=== PATIENT | male | born 1985 | race Two or more races ===

== ENCOUNTER 2022-10-27 12:29 | Emergency (ER) | payer SELFPAY ==
[~2022-10-27] VITALS: Ht 177.8 cm; Wt 74.8 kg
[~2022-10-27 12:29] MED LIST: Bactrim Ds Tab1 EACH PO; CEPH500 PO
[2022-10-27 13:21] LABS: BASOPHILS ABSOLUTE AUTO 0.05 K/mm3 (0.00-0.23); BASOPHILS PERCENT AUTO 0 % (0-2); EOSINOPHILS ABSOLUTE AUTO 0.11 K/mm3 (0.00-0.68); EOSINOPHILS PERCENT AUTO 1 % (0-6); IMMATURE GRAN ABSOLUTE AUTO 0.03 K/mm3 (0.00-0.10); IMMATURE GRAN PERCENT AUTO 0 % (0-1); LYMPHOCYTES ABSOLUTE AUTO 1.81 K/mm3 (0.84-5.20); LYMPHOCYTES PERCENT AUTO 15 % (21-46); MONOCYTES ABSOLUTE AUTO 0.91 K/mm3 (0.16-1.47); MONOCYTES PERCENT AUTO 7 % (4-13); Mean Corpuscular HGB 30.5 pg (26.0-34.0); Mean Corpuscular HGB Conc 34.1 g/dL (31.5-36.5); Mean Corpuscular Volume 89 fL (80-100); Mean Platelet Volume 10.8 fL (9.1-12.4); NEUTROPHILS ABSOLUTE AUTO 9.42 K/mm3 (1.96-9.15); NEUTROPHILS PERCENT AUTO 76 % (41-73); Platelet Count 271 K/mm3 (150-400); RDW Coefficient Variation 11.9 % (11.7-14.2); RDW Standard Deviation 38.6 fL (35.1-46.3); Red Blood Cell Count 4.59 M/mm3 (4.30-5.90); White Blood Cell Count 12.33 K/mm3 (4.00-11.30)
[2022-10-27 13:47] LABS: Albumin, Blood 3.2 g/dL (3.4-5.0); Albumin/Globulin Ratio 0.8 (0.8-1.8); Bilirubin, Total 0.3 mg/dL (0.1-1.0); Bun/Creatinine Ratio 16.5 (12.0-20.0); C-REACTIVE PROTEIN, EXT RANGE 6.27 mg/dL (0.000-0.300); Calcium, Blood 9.1 mg/dL (8.5-10.1); Creatinine, Blood 0.91 mg/dL (0.60-1.20); Globulin, Blood 3.9 g/dL (2.2-4.0); Potassium, Blood 3.9 mmol/L (3.5-5.5); Total Protein, Blood 7.1 g/dL (6.4-8.2)
[2022-10-27] MEDS ORDERED: Bactrim Ds Tab1 EACH PO (14:43)
[2022-10-27] MEDS ORDERED: IBUP800 PO (14:43)
== END 2022-10-27 14:56 | disposition home or self-care (01) ==
LOC: ER 12:29
PROVIDERS: Physician Assistant
DX: M71.161 Other infective bursitis, right knee (principal); Z88.0 Allergy status to penicillin; Z79.899 Other long term (current) drug therapy; F17.200 Nicotine dependence, unspecified, uncomplicated
CPT/HCPCS: 20610; 73562-RT; 80053; 85025; 86140; 99283-25; A9270

== ENCOUNTER 2023-02-13 13:42 | Inpatient (IN) | payer OTHER ==
[~2023-02-13] VITALS: Ht 177.8 cm; Wt 72.8 kg
[~2023-02-13 13:42] MED LIST changes: +IBUP800 PO
[2023-02-13 14:19] LABS: BASOPHILS ABSOLUTE AUTO 0.08 K/mm3 (0.00-0.23); BASOPHILS PERCENT AUTO 0 % (0-2); EOSINOPHILS ABSOLUTE AUTO 0.06 K/mm3 (0.00-0.68); EOSINOPHILS PERCENT AUTO 0 % (0-6); Hematocrit 38.6 % (37.0-53.0); Hemoglobin 13.1 g/dL (13.5-17.5); IMMATURE GRAN ABSOLUTE AUTO 0.16 K/mm3 (0.00-0.10); IMMATURE GRAN PERCENT AUTO 1 % (0-1); LYMPHOCYTES ABSOLUTE AUTO 2.34 K/mm3 (0.84-5.20); LYMPHOCYTES PERCENT AUTO 10 % (21-46); MONOCYTES ABSOLUTE AUTO 2.01 K/mm3 (0.16-1.47); MONOCYTES PERCENT AUTO 8 % (4-13); Mean Corpuscular HGB 29.9 pg (26.0-34.0); Mean Corpuscular HGB Conc 33.9 g/dL (31.5-36.5); Mean Corpuscular Volume 88 fL (80-100); Mean Platelet Volume 9.9 fL (9.1-12.4); NEUTROPHILS ABSOLUTE AUTO 19.71 K/mm3 (1.96-9.15); NEUTROPHILS PERCENT AUTO 81 % (41-73); Platelet Count 541 K/mm3 (150-400); RDW Coefficient Variation 11.7 % (11.7-14.2); RDW Standard Deviation 38.1 fL (35.1-46.3); Red Blood Cell Count 4.38 M/mm3 (4.30-5.90); White Blood Cell Count 24.36 K/mm3 (4.00-11.30)
[2023-02-13 14:40] LABS: Source, Urine Clean Catch
[2023-02-13 14:41] LABS: Albumin, Blood 2.4 g/dL (3.4-5.0); Albumin/Globulin Ratio 0.4 (0.8-1.8); Bilirubin, Total 0.5 mg/dL (0.1-1.0); Bun/Creatinine Ratio 13.8 (12.0-20.0); Calcium, Blood 8.6 mg/dL (8.5-10.1); Creatinine, Blood 0.94 mg/dL (0.60-1.20); Globulin, Blood 5.7 g/dL (2.2-4.0); Potassium, Blood 4.1 mmol/L (3.5-5.5); Total Protein, Blood 8.1 g/dL (6.4-8.2)
[2023-02-13 14:44] LABS: Appearance, Urine Hazy (Clear); Bilirubin, Urine Neg (Neg); Blood, Urine Neg (Neg); Color, Urine Yellow (P-Yellow); Glucose Qualitative, Urine Neg (Neg); Ketones, Urine Neg (Neg); Leukocyte Esterase, Urine 1+ (Neg); Nitrite, Urine Neg (Neg); Protein, Urine 2+ (Neg); Specific Gravity, Urine 1.015 (1.003-1.022); Urobilinogen, Urine 1+ (Normal)
[2023-02-13 15:06] LABS: Red Blood Cells, Urine 0-2 /hpf (0-2); Squamous Epithelial Cells Few /hpf (Few)
[2023-02-13 15:07] LABS: Bacteria Few /hpf; Hyaline Casts 0-2 /lpf (0-2); Mucus Mod (0-Heavy)
[2023-02-13] MEDS ORDERED: IBUP600 PO (15:22)
[2023-02-13] MEDS ORDERED: Percocet 5-3251 EACH PO (15:22)
[2023-02-13 18:11] LABS: U Amphetamine Screen DETECTED; U Barbituate Screen Not Detected; U Benzodiazapine Screen Not Detected; U Buprenorphine Screen Not Detected; U Cannabinoids Screen DETECTED; U Cocaine Screen Not Detected; U Methadone Screen Not Detected; U Methamphetamine Screen DETECTED; U Opiates Screen Not Detected; U Oxycodone Screen Not Detected; U Phencyclidine Screen Not Detected
[2023-02-13 21:11] VITALS: BP 122/77
--- NOTE | 2023-02-13 23:54 | NUR ---
SPOKE WITH HOSPITALIST AND PHARMACY REGARDING CEFEPIME DOSING TIMES, CEFEPIME ORIGINALLY ADMINISTERED AT 2230, NEXT DOSE SCHEDULED AT 0000. DOSING SCHEDULE Q8 AFTER INITIAL DOSE.
--- NOTE | 2023-02-13 23:57 | NUR ---
PHARMACY INFORMED TO SKIP 0000 DOSE OF CEFEPIME AND ADMINISTER 0800. WILL INFORM DAY SHIFT.
[2023-02-14 03:25] VITALS: BP 124/67
--- NOTE | 2023-02-14 05:35 | NUR ---
SHIFT SUMMARY PT A&OX4 AND ANSWERS QUESTIONS APPROPRIATELY. PT ARRIVED ON UNIT AT 2100 VIA W/C AND TRANSFERED INDEPENDENTLY TO THE BED. NO COMPLAINTS OF PAIN WHEN ASSESSED. PT ORIENTED TO ROOM AND CALL LIGHT. SMOKING/FIRE POLICY TAUGHT TO PT, PT VERBALIZED UNDERSTANDING. PT RECEIVED IV ANTIBIOTICS THROUGHOUT THE NIGHT. PT RECEIVED A SNACK AT AROUND 2130. PT SLEPT THROUGH MOST OF SHIFT. NO ACUTE EVENTS OCCURED DURING SHIFT. PT TO HAVE ABCESS DRAINED ON 02/14/23. VSS. PT LEFT IN A POSITION OF SAFETY WITH APPROPRIATE FALL PRECAUTIONS IN PLACE AND CALL LIGHT IN REACH.
[2023-02-14 06:17] LABS: Hematocrit 35.5 % (37.0-53.0); Hemoglobin 11.9 g/dL (13.5-17.5); Mean Corpuscular HGB 29.5 pg (26.0-34.0); Mean Corpuscular HGB Conc 33.5 g/dL (31.5-36.5); Mean Corpuscular Volume 88 fL (80-100); Mean Platelet Volume 10.4 fL (9.1-12.4); Platelet Count 444 K/mm3 (150-400); RDW Coefficient Variation 11.9 % (11.7-14.2); RDW Standard Deviation 38.5 fL (35.1-46.3); Red Blood Cell Count 4.03 M/mm3 (4.30-5.90); White Blood Cell Count 19.87 K/mm3 (4.00-11.30)
[2023-02-14 06:32] LABS: International Normalized Ratio 1.09; Prothrombin Time Results 11.4 Sec (9.7-11.5)
[2023-02-14 06:45] LABS: Bun/Creatinine Ratio 15.8 (12.0-20.0); Calcium, Blood 8.4 mg/dL (8.5-10.1); Creatinine, Blood 0.82 mg/dL (0.60-1.20); Magnesium, Blood 2.1 mg/dL (1.6-2.4); Potassium, Blood 4.2 mmol/L (3.5-5.5)
[2023-02-14 07:29] VITALS: BP 116/79
[2023-02-14 15:01] VITALS: BP 123/70
--- NOTE | 2023-02-14 15:42 | NUR ---
TO CT FOR ABCESS DRAIN.
[2023-02-14 16:45] VITALS: BP 118/71
--- NOTE | 2023-02-14 17:55 | NUR ---
LATE ENTRY 1630: PT RETURNED FROM CT WITH L NEPH TUBE FOR ABCESS DRAINAGE. VSS. PT STATES HE'S HUNGRY. PROVIDED SNACK & DRINK. DINNER WILL BE GIVEN TO PT. PT DENIES PAIN AT TUBE SITE.
--- NOTE | 2023-02-14 17:58 | NUR ---
SHIFT SUMMARY A&O X 4, VSS. LOW GRADE TEMP 100.00. WBC'S 19.87. IS PLEASANT & COOPERATIVE WITH ALL CARE, IS INDEPENDENT IN THE ROOM FOR RESTROOM USE. PT DENIES PAIN OR DISCOMFORT. L NEPH TUBE INTACT, SITE C/D/I. IS USING URINAL INDEPENDENTLY. CALL LIGHT WITHIN REACH, BED IN LOW POSITION. MAKES NEEDS KNOWN.
[2023-02-14 19:06] LABS: Vancomycin, Trough 8.7 ug/mL (5.0-10.0)
[2023-02-14 20:09] VITALS: BP 120/71
--- NOTE | 2023-02-15 04:51 | NUR ---
END OF SHIFT SUMMARY PT CALM, QUIET, VERY SOFT SPOKEN, AND COOPERATIVE WITH CARE PROVIDED. PT A&O x4, VSS, AFEBRILE, PT ON RA. PT SLEPT WELL THROUGHOUT THE NIGHT. PT RECEIVING IV ABX. CONTINUOUS FLUIDS RUNNING, NS AT 125 mL/HR. PT C/O PAIN TO L SIDE/ABD PAIN WHERE L NEPH TUBE WAS PLACED. PAIN MANAGED WITH PRN IV TORADOL, WHICH WAS EFFECTIVE. PT UP AD JOSEPH IN ROOM, INDEPENDENT WITH ADL's. PT ABLE TO MAKE NEEDS KNOWN, CALL LIGHT WITHIN REACH, WCTM.
[2023-02-15 05:22] VITALS: BP 130/82
[2023-02-15 07:24] VITALS: BP 126/80
--- NOTE | 2023-02-15 10:31 | NUR ---
CALLED CALLED TO NOTIFY OF PT'S BLOOD CULTURE RESULTS. RESULTS OF BLOOD CULTURE INDICATE GRAM + COCCI IN CLUSTERS.
[2023-02-15 16:08] VITALS: BP 104/66
--- NOTE | 2023-02-15 17:50 | NUR ---
SHIFT SUMMARY PT DENIED PAIN T/O SHIFT AND CONT TO HAVE PURULENT DRAINAGE FROM DRAIN. NO OTHER ACUTE CHANGES THIS SHIFT. CALL LIGHT WITHIN REACH AND PT ABLE TO MAKE NEEDS KNOWN.
[2023-02-15 19:11] VITALS: BP 130/79
[2023-02-15 19:51] LABS: Vancomycin, Trough 13.2 ug/mL (5.0-10.0)
--- NOTE | 2023-02-16 03:32 | NUR ---
END OF SHIFT SUMMARY PT A&O x4, CALM AND COOPERATIVE WITH CARE PROVIDED. VSS, AFEBRILE, PT ON RA. PT'S NEPH BAG LEAKED THE TWIST VALVE DRAINAGE PORT CAME LOOSE. DRAINAGE FROM BAG PURULENT IN COLOR. PROVIDED PT WITH A FRESH GOWN AND FRESH SHEETS. PT DENIED PAIN/DISCOMFORT OVERNIGHT. PT RECEIVED MULTIPLE IV ABX. PT UP AD JOSEPH IN ROOM, USES THE URINAL AT BEDSIDE. PT ABLE TO MAKE NEEDS KNOWN, PLEASANT AND COMPLIANT WITH CARE. CALL LIGHT WITHIN REACH, WCTM.
[2023-02-16 04:14] VITALS: BP 127/88
[2023-02-16 05:55] LABS: Hematocrit 39.3 % (37.0-53.0); Hemoglobin 13.2 g/dL (13.5-17.5); Mean Corpuscular HGB 29.9 pg (26.0-34.0); Mean Corpuscular HGB Conc 33.6 g/dL (31.5-36.5); Mean Corpuscular Volume 89 fL (80-100); Mean Platelet Volume 10.3 fL (9.1-12.4); Platelet Count 494 K/mm3 (150-400); RDW Coefficient Variation 11.9 % (11.7-14.2); RDW Standard Deviation 38.4 fL (35.1-46.3); Red Blood Cell Count 4.42 M/mm3 (4.30-5.90); White Blood Cell Count 10.67 K/mm3 (4.00-11.30)
[2023-02-16 06:10] LABS: Calcium, Blood 8.6 mg/dL (8.5-10.1); Creatinine, Blood 0.61 mg/dL (0.60-1.20); Potassium, Blood 4.4 mmol/L (3.5-5.5)
[2023-02-16 07:37] VITALS: BP 122/82
--- NOTE | 2023-02-16 17:06 | NUR ---
SHIFT SUMMARY NO ACUTE CHANGES THIS SHIFT. CALL LIGHT WITHIN REACH AND PT ABLE TO MAKE NEEDS KNOWN.
[2023-02-16 19:40] VITALS: BP 125/83
--- NOTE | 2023-02-17 02:14 | NUR ---
[place] BESIDE SWALLOW PATIENT PASSED THE [place] BEDSIDE SWALLOW. PATIENTS STATES NAME, YEAR AND PLACE W/O DIFFICULTY. PATIENTS FACE SYMMETRICAL WITH SMILE, FULL RANGE IN TOUNGE, EASILY ABLE TO PUFF CHEEKS WITH LIPS CLOSED. PATIENT ABLE TO DRINK 3OZ OF WATER SLOWLY AND CONTINUOUSLY WITHOUT ISSUES. NO COUGHING FOLLOWING BEDSIDE SWALLOW.
[2023-02-17 03:17] VITALS: BP 126/80
[2023-02-17 05:45] LABS: Hematocrit 40.5 % (37.0-53.0); Hemoglobin 13.1 g/dL (13.5-17.5); Mean Corpuscular HGB 29.1 pg (26.0-34.0); Mean Corpuscular HGB Conc 32.3 g/dL (31.5-36.5); Mean Corpuscular Volume 90 fL (80-100); Mean Platelet Volume 9.8 fL (9.1-12.4); Platelet Count 508 K/mm3 (150-400); RDW Coefficient Variation 11.9 % (11.7-14.2); RDW Standard Deviation 38.9 fL (35.1-46.3); White Blood Cell Count 11.69 K/mm3 (4.00-11.30)
[2023-02-17 06:18] LABS: Calcium, Blood 8.8 mg/dL (8.5-10.1); Creatinine, Blood 0.62 mg/dL (0.60-1.20); Potassium, Blood 4.1 mmol/L (3.5-5.5)
--- NOTE | 2023-02-17 06:30 | NUR ---
SHIFT SUMMARY. NO ACUTE CHANGES. PATIENT INDEPENDENT IN ROOM. PATIENT AOX4. CALLS APPROPRIATELY, ABLE TO MAKE NEEDS KNOWN. PATIENT HAS SLEPT WELL T/O NIGHT, REQUESTED SNACKS-SNACKS PROVIDED. PATIENT HAS NS INFUSING-SEE EMAR. BED IS LOCKED IN THE LOWEST POSITION W/CALL LIGHT IN REACH. NO S/S OF DISTRESS NOTED AT THIS TIME.
[2023-02-17 07:16] VITALS: BP 123/78
--- NOTE | 2023-02-17 10:46 | NUR ---
UPON ASSESSMENT PATIENT STATES THAT HE HAS [place]IVING [place] THE [place] FOR 2 YEARS NOW. WHEN ASKED PATIENT REASONING FOR HOMELESS HE STATES DUE TO NOT HAVING A JOB. HE STATES THAT HE USES [employer] OCCASIONALLY AND LAST USED 2 DAYS AGO. HE IS DIAPHORETIC EVEN POST SHOWER. HE STATES THAT HE FEELS FINE. I ASKED IF HE FELT ANXIOUS AND HE STATED A LITTLE. I ASKED HIM IF HE SWEATS LIKE THIS NORMALLY AND HE RESPONDED WITH SOMTIMES. I ASKED IF HE FELT THAT IT WAS DUE TO WITHDRAWAL FROM [employer] AND HE STATED POSSIBLY, YEAH. HE IS ALERT, ANSWERS QUESTIONS APPROPRIATELY, AND EATING SNACKS AND DRINKING JUICE. PLAN OF CARE ONGOING.
[2023-02-17 11:36] LABS: Vancomycin, Trough 18.5 ug/mL (5.0-10.0)
--- NOTE | 2023-02-17 17:09 | NUR ---
SHIFT SUMMARY: PT IS A 38 YEAR OLD MALE HERE BEING TREATED FOR A PERINEPHRIC ABSCESS AND PYELONEPHRITIS; POSITIVE MRSA BLOOD CULTURE. HE HAS A LEFT SIDE PERCUTANEOUS DRAIN DRAINING THE PERINEPHRIC ABSCESS. THE DRAINAGE IS PURULENT AND BLOOD TINGED. 75 ML OF DRAINAGE CURRENT IN BAG. PATIENT IS IN BED, RESTING THROUGHOUHT THE DAY, ALERT WHEN ENTERING ROOM AND PROVIDING CARE AND PLEASANT AND COOPERATIVE. HE USES HIS CALL LIGHT AND MAKES HIS NEEDS KNOWN. PLAN OF CARE ONGOING.
[2023-02-17 19:55] VITALS: BP 119/60
[2023-02-18 03:19] VITALS: BP 118/73
--- NOTE | 2023-02-18 04:56 | NUR ---
SHIFT SUMMARY. PATIENT IS ADMITTED WITH PERINEPHRIC ABCESS THAT IS DRAINING PURULENT DRAINAGE. PATIENT IS INDEPENDENT IN ROOM, ABLE TO MAKE HIS NEEDS KNOW, COOPERATIVE W/CARE. PATIENT IS REPONSIVE AND ALERT WITH CARE. PATIENT SLEPT WELL T/O NIGHT WITH RESPIRATIONS EQUAL AND UNLABORED. PATIENT DENIES PAIN. PATIENT DENIES CHEST PAIN/PRESSURE/TIGHTNESS. PATIENT REPORTED THAT HE HAD A BM ON 02/17/23. BED IS LOCKED IN THE LOWEST POSITION WITH CALL LIGHT IN REACH. NO S/S OF DISTRESS NOTED AT THIS TIME.
[2023-02-18 07:17] VITALS: BP 126/78
[2023-02-18 11:16] LABS: Vancomycin, Trough 19.8 ug/mL (5.0-10.0)
--- NOTE | 2023-02-18 19:17 | NUR ---
SHIFT SUMMARY: NO CHANGES WITH PATIENT. CONTINUES TO RECEIVE IV ANTIBIOTICS. IV FLUIDS D/C'D. PATIENT HAS EFFICIENT INTAKE AND OUTPUT. SHOWERING HIMSELF, INDEPENDENT IN ROOM, MAKES HIS NEEDS KNOWN. IN BED, CALL WITHIN REACH, NO SIGNS OR SYMPTOMS OF DISTRESS. CALL OF CARE ONGOING.
[2023-02-18 20:07] VITALS: BP 127/80
[2023-02-19 03:41] VITALS: BP 118/70
[2023-02-19 05:43] LABS: Hematocrit 39.8 % (37.0-53.0); Mean Corpuscular HGB 29.8 pg (26.0-34.0); Mean Corpuscular HGB Conc 32.7 g/dL (31.5-36.5); Mean Corpuscular Volume 91 fL (80-100); Mean Platelet Volume 9.9 fL (9.1-12.4); Platelet Count 566 K/mm3 (150-400); RDW Coefficient Variation 11.8 % (11.7-14.2); RDW Standard Deviation 39.8 fL (35.1-46.3); Red Blood Cell Count 4.36 M/mm3 (4.30-5.90); White Blood Cell Count 13.69 K/mm3 (4.00-11.30)
[2023-02-19 06:07] LABS: Albumin, Blood 2.2 g/dL (3.4-5.0); Anion Gap 3 mmol/L (6-16); Blood Urea Nitrogen 18 mg/dL (8-24); Bun/Creatinine Ratio 23.7 (12.0-20.0); CO2, Blood 31 mmol/L (21-32); Calcium, Blood 9.1 mg/dL (8.5-10.1); Chloride, Blood 107 mmol/L (98-108); Creatinine, Blood 0.76 mg/dL (0.60-1.20); Glomerular Filtration Rate 117 (60-); Glucose, Blood 97 mg/dL (70-99); Phosphorus, Blood 3.8 mg/dL (2.5-4.9); Potassium, Blood 4.5 mmol/L (3.5-5.5); Sodium, Blood 141 mmol/L (136-145)
--- NOTE | 2023-02-19 06:34 | NUR ---
SHIFT SUMMARY. PATIENT IS A 38 YEAR OLD MALE IN WITH PERINEPHRIC ABCESS W/ PIGTAIL DRAIN TO LEFT FLANK. PATIENT IS INDEPENDENT IN ROOM. ON RA. CALLS APPROPRIATELY AND IS ABLE TO MAKE HIS NEEDS KNOWN. PATIENT C/O PAIN-MEDICATED PER EMAR X1 W/ GOOD RESULTS. BED IS LOCKED IN THE LOWEST POSITION W/CALL LIGHT IN REACH. NO S/S OF DISTRESS NOTED AT THIS TIME.
[2023-02-19 07:54] VITALS: BP 112/70
[2023-02-19 15:26] VITALS: BP 119/67
--- NOTE | 2023-02-19 16:38 | NUR ---
SHIFT SUMMARY- PT IS A/O, INDEPENDENT IN THE ROOM. HE IS EATING AND DRINKING WELL. HIS DRAIN HAS MINIMAL OUTPUT. HIS BED IS IN THE LOW POSIITON AND CALL LIGHT IS WITHIN REACH.
[2023-02-19 20:02] VITALS: BP 117/73
--- NOTE | 2023-02-20 02:40 | NUR ---
ASSUMED CARE PT SLEEPING AT THIS TIME, RESP UNLABORED, CALL LIGHT IN REACH
[2023-02-20 03:57] VITALS: BP 107/66
[2023-02-20 08:01] VITALS: BP 125/69
[2023-02-20 16:17] VITALS: BP 114/73
--- NOTE | 2023-02-20 16:53 | NUR ---
PT IS A/OX4, UP IND IN HIS ROOM, THE PT DENIED PAIN THIS SHIFT SO FAR. PTS LEFT FLANK DRAIN DRESSING IS C/D/I WITH SMALL AMOUNT OF PURELANT FLUID IN THE BAG. PT APPEARS TO BE BREATHING EASILY ON RA AT THIS TIME, CALL LIGHT IN REACH
[2023-02-20 19:29] VITALS: BP 110/69
--- NOTE | 2023-02-21 04:48 | NUR ---
SHIFT SUMMARY ELLEN WAS ALERT AND FULLY ORIENTED AT THE START OF THE SHIFT. HE IS INDEPENDENT IN THE ROOM. PT DENIES NEW OR WORSENING SYMPTOMS, SOB, AND C/P/PRESSURE. NO ACUTE EVENTS TONIGHT OR CHANGES IN CONDITION. DRAIN SITE APPEARS CLEAN AND INTACT, IT IS REDDENED 1-2 MM AROUND DRAIN SITE, AND DRAINING PURULENT PINK FLUID. PT RESTING IN BED AT A LOW POSITION WITH CALL LIGHT IN REACH.
[2023-02-21 05:27] VITALS: BP 121/75
[2023-02-21 15:49] VITALS: BP 121/79
--- NOTE | 2023-02-21 16:32 | NUR ---
PT IS A/OX4, PLEASANT AND COOPERATIVE. THE PT IS UP IND IN HIS ROOM. THE PT WAS MEDICATED FOR LEFT FLANK PAIN X1 SO FAR THIS SHIFT. THE PT APPEARS TO BE BREATHING EASILY ON RA. PT CONTINUES TO HAVE A DRAIN IN THE LEFT FLANK AREA WITH A SMALL AMOUNT OF PURILANT DRAINAGE. DRAIN IS INTACT CLAEAN AND DRY. CALL LIGHT IN REACH PLANS FOR POSSIBLE DC TOMORROW AFTER ANTIBOTIC INFUSION
[2023-02-21 19:18] VITALS: BP 125/91
[2023-02-22 03:20] VITALS: BP 116/73
--- NOTE | 2023-02-22 05:06 | NUR ---
PATIENT IS A 38 YEAR OLD MALE IN WITH PERINEPHRIC ABCESS. PATIENT IS AOX4. INDEPENDENT IN ROOM. CALLS APPROPRIATELY AND ABLE TO MAKE HIS NEEDS KNOWN. PATIENT HAS A PIGTAIL DRIAN TO THE LEFT FLANK DRAINING PURULENT DRAINAGE. BED IS LOCKED IN THE LOWEST POSITION WITH CALL LIGHT IN REACH. NO S/S OF DISTRESS NOTED AT THIS TIME.
[2023-02-22 07:30] VITALS: BP 113/72
[2023-02-22] MEDS ORDERED: CUBICIN RF500 M1 IV (13:09)
[2023-02-22] MEDS ORDERED: VISBIOME 112.51 EACH PO (13:09)
--- NOTE | 2023-02-22 18:39 | NUR ---
SHIFT SUMMARY AND DISCHARGE PATIENT ALERT AND INTERACTIVE. AMBULATING INDEPENDENTLY AND GETTING RESTLESS THROUGHOUT SHIFT. DR. GARCIA PLACED DISCHARGE ORDERS BUT DRAIN NEEDING TO BE REMOVED BY DR. CARSON. DISCHARGE INSTRUCTIONS REVIEWED WITH PATIENT. PATIENT TO FOLLOW UP WITH CRISTOPHER FOR DAILY INFUSIONS. CASE MANAGEMENT ARRANGED FOR PATIENT TO GO TO HIS PARENTS AFTER DRAIN REMOVED. PATIENT BECOMING MORE RESTLESS THROUGHOUT THE SHIFT. PATIENT LEFT ROOM MULTIPLE TIMES WITHOUT COMMUNICATING WITH NURSE. PATIENT NOTED NOT TO BE IN HIS ROOM AND UNABLE TO BE LOCATED. FATHER CONTACTED TO ATTEMPT TO LOCATE PATIENT. FATHER STATING PATIENT COULD NOT COME THERE BECAUSE FOSTER CHILDREN. FATHER STATES THAT HE POSSIBLE LEFT AND RETURNED TO HIS HOMELESS CAMP. FATHER TOLD PATIENT TO GO TO [place] IF POSSIBLE WHEN SPOKE TO PATIENT EARLIER. PATIENT DOES NOT HAVE A PHONE TO CONTACT. NOTIFIED CHARGE NURSE. PATIENT BELONGINGS GONE FROM ROOM. BODY AND FRAME TECHNICIAN NOTIFIED.
--- NOTE | 2023-02-22 19:21 | NUR ---
DR CARSON NOTIFIED BY DR GARCIA TO REMOVE DRAIN EARLIER TODAY. PATIENT LEFT PRIOR TO DRAIN REMOVED.
== END 2023-02-22 18:41 | disposition home or self-care (01) | DRG 871 ==
LOC: ER 13:42 → MEDS 17:35
PROVIDERS: Internal Medicine; Nurse Practitioner Acute Care; Physician Assistant; ADMIT Internal Medicine
DX: A41.02 Sepsis due to Methicillin resistant Staphylococcus aureus (principal); N15.1 Renal and perinephric abscess; Z59.02 Unsheltered homelessness; N12 Tubulo-interstitial nephritis, not specified as acute or chronic; F15.10 Other stimulant abuse, uncomplicated; B95.62 Methicillin resistant Staphylococcus aureus infection as the cause of diseases classified elsewhere; Z88.0 Allergy status to penicillin; F17.210 Nicotine dependence, cigarettes, uncomplicated; Z71.51 Drug abuse counseling and surveillance of drug abuser; Z79.899 Other long term (current) drug therapy
CPT/HCPCS: 36415; 74177; 75989; 80048; 80053; 80069; 80202; 81001; 83605; 83735; 85025; 85027; 85610; 87040; 87070; 87075; 87077; 87086; 87147; 87186; 87205; 96361; 96365; 96366; 96367; 96375; 99285-25; A9270; J0692; J0696; J0878; J1885; J3370; J7030; J7050; Q9967

== ENCOUNTER 2023-02-23 02:19 | Day surgery (SDC) | payer OTHER ==
[~2023-02-23 02:19] MED LIST changes: +CUBICIN RF500 M1 IV; +IBUP600 PO; +Percocet 5-3251 EACH PO; +VISBIOME 112.51 EACH PO
[2023-02-23 09:30] VITALS: BP 156/95
== END 2023-02-23 10:05 | disposition home or self-care (01) ==
LOC: ATC 02:19
DX: N15.1 Renal and perinephric abscess (principal); A41.02 Sepsis due to Methicillin resistant Staphylococcus aureus; Z88.0 Allergy status to penicillin
CPT/HCPCS: 96365; J0878

== ENCOUNTER 2023-02-24 02:45 | Day surgery (SDC) | payer OTHER ==
[2023-02-24 08:06] VITALS: BP 145/101
== END 2023-02-24 08:33 | disposition home or self-care (01) ==
LOC: ATC 02:45
DX: N15.1 Renal and perinephric abscess (principal); A41.02 Sepsis due to Methicillin resistant Staphylococcus aureus; Z88.0 Allergy status to penicillin
CPT/HCPCS: 96365; J0878

== ENCOUNTER 2023-02-25 03:22 | Day surgery (SDC) | payer OTHER ==
[2023-02-25 13:05] VITALS: BP 147/90
== END 2023-02-25 13:30 | disposition home or self-care (01) ==
LOC: ATC 03:22
DX: N15.1 Renal and perinephric abscess (principal); B95.62 Methicillin resistant Staphylococcus aureus infection as the cause of diseases classified elsewhere; Z88.0 Allergy status to penicillin
CPT/HCPCS: 96365; J0878

== ENCOUNTER 2023-02-27 03:48 | Day surgery (SDC) | payer OTHER ==
[2023-02-27 14:01] VITALS: BP 144/100
== END 2023-02-27 14:34 | disposition home or self-care (01) ==
LOC: ATC 03:48
DX: N15.1 Renal and perinephric abscess (principal); Z88.0 Allergy status to penicillin
CPT/HCPCS: 96365; J0878

== ENCOUNTER 2023-02-27 14:50 | Emergency (ER) | payer OTHER ==
[~2023-02-27] VITALS: Ht 177.8 cm; Wt 74.8 kg
[2023-02-27 15:50] VITALS: BP 124/90
== END 2023-02-27 15:55 | disposition home or self-care (01) ==
LOC: ER 14:50
DX: Z00.00 Encounter for general adult medical examination without abnormal findings (principal); Z93.6 Other artificial openings of urinary tract status; F17.200 Nicotine dependence, unspecified, uncomplicated; Z88.0 Allergy status to penicillin
CPT/HCPCS: 99282

== ENCOUNTER 2023-02-28 02:35 | Day surgery (SDC) | payer OTHER ==
[2023-02-28 09:40] VITALS: BP 142/91
== END 2023-02-28 10:18 | disposition home or self-care (01) ==
LOC: ATC 02:35
DX: N15.1 Renal and perinephric abscess (principal); A49.02 Methicillin resistant Staphylococcus aureus infection, unspecified site; R78.81 Bacteremia; Z88.0 Allergy status to penicillin
CPT/HCPCS: 96365; J0878

== ENCOUNTER 2023-03-01 01:53 | Day surgery (SDC) | payer OTHER ==
[2023-03-01 09:37] VITALS: BP 128/90
== END 2023-03-01 10:01 | disposition home or self-care (01) ==
LOC: ATC 01:53
DX: N12 Tubulo-interstitial nephritis, not specified as acute or chronic (principal); F17.210 Nicotine dependence, cigarettes, uncomplicated
CPT/HCPCS: 96365; J0878

== ENCOUNTER 2023-03-02 01:12 | Day surgery (SDC) | payer OTHER ==
[2023-03-02 09:26] VITALS: BP 146/97
== END 2023-03-02 09:47 | disposition home or self-care (01) ==
LOC: ATC 01:12
DX: N15.1 Renal and perinephric abscess (principal); Z88.0 Allergy status to penicillin
CPT/HCPCS: 96365; J0878

== ENCOUNTER 2023-03-03 03:23 | Day surgery (SDC) | payer OTHER ==
[2023-03-03 09:20] VITALS: BP 129/84
== END 2023-03-03 09:48 | disposition home or self-care (01) ==
LOC: ATC 03:23
DX: N15.1 Renal and perinephric abscess (principal); A41.02 Sepsis due to Methicillin resistant Staphylococcus aureus; Z88.0 Allergy status to penicillin
CPT/HCPCS: 96365; J0878

== ENCOUNTER 2023-03-04 03:54 | Day surgery (SDC) | payer OTHER ==
[2023-03-04 09:33] VITALS: BP 130/86
== END 2023-03-04 10:08 | disposition home or self-care (01) ==
LOC: ATC 03:54
DX: A49.02 Methicillin resistant Staphylococcus aureus infection, unspecified site (principal); R78.81 Bacteremia; N15.1 Renal and perinephric abscess; Z88.0 Allergy status to penicillin
CPT/HCPCS: 96365; J0878

== ENCOUNTER 2023-03-05 01:57 | Day surgery (SDC) | payer OTHER ==
[2023-03-05 09:53] VITALS: BP 123/80
== END 2023-03-05 10:04 | disposition home or self-care (01) ==
LOC: ATC 01:57
DX: N15.1 Renal and perinephric abscess (principal); A49.02 Methicillin resistant Staphylococcus aureus infection, unspecified site; R78.81 Bacteremia; Z88.0 Allergy status to penicillin
CPT/HCPCS: 96365; J0878

== ENCOUNTER 2023-03-06 02:27 | Day surgery (SDC) | payer OTHER ==
[2023-03-06 09:57] VITALS: BP 132/83
== END 2023-03-06 10:20 | disposition home or self-care (01) ==
LOC: ATC 02:27
DX: A41.02 Sepsis due to Methicillin resistant Staphylococcus aureus (principal); N15.1 Renal and perinephric abscess; Z88.0 Allergy status to penicillin
CPT/HCPCS: 96365; J0878

== ENCOUNTER 2023-03-07 02:45 | Day surgery (SDC) | payer OTHER | END 2023-03-07 23:08 | disposition home or self-care (01) | LOC: ATC 02:45 | DX: N15.1 Renal and perinephric abscess (principal); B95.62 Methicillin resistant Staphylococcus aureus infection as the cause of diseases classified elsewhere; Z88.0 Allergy status to penicillin ==

== ENCOUNTER 2023-03-09 00:22 | Day surgery (SDC) | payer OTHER | END 2023-03-10 00:12 | disposition home or self-care (01) | LOC: ATC 00:22 | DX: N15.1 Renal and perinephric abscess (principal); B95.62 Methicillin resistant Staphylococcus aureus infection as the cause of diseases classified elsewhere; Z88.0 Allergy status to penicillin ==

== ENCOUNTER 2023-03-10 04:33 | Day surgery (SDC) | payer OTHER ==
[2023-03-10 09:35] VITALS: BP 134/87
== END 2023-03-10 09:55 | disposition home or self-care (01) ==
LOC: ATC 04:33
DX: N15.1 Renal and perinephric abscess (principal); A41.02 Sepsis due to Methicillin resistant Staphylococcus aureus; Z88.0 Allergy status to penicillin
CPT/HCPCS: 96365; J0878

== ENCOUNTER 2023-03-11 04:21 | Day surgery (SDC) | payer OTHER ==
[2023-03-11 09:41] VITALS: BP 131/85
== END 2023-03-11 10:01 | disposition home or self-care (01) ==
LOC: ATC 04:21
DX: N15.1 Renal and perinephric abscess (principal); Z88.0 Allergy status to penicillin
CPT/HCPCS: 96365; J0878

== ENCOUNTER 2023-03-12 02:47 | Day surgery (SDC) | payer OTHER ==
[2023-03-12 10:05] VITALS: BP 130/84
== END 2023-03-12 10:30 | disposition home or self-care (01) ==
LOC: ATC 02:47
DX: N15.1 Renal and perinephric abscess (principal); A41.02 Sepsis due to Methicillin resistant Staphylococcus aureus; Z88.0 Allergy status to penicillin
CPT/HCPCS: 96365; J0878

== ENCOUNTER 2023-03-13 00:27 | Day surgery (SDC) | payer OTHER ==
[2023-03-13 09:49] VITALS: BP 126/82
== END 2023-03-13 10:15 | disposition home or self-care (01) ==
LOC: ATC 00:27
DX: N15.1 Renal and perinephric abscess (principal); A41.02 Sepsis due to Methicillin resistant Staphylococcus aureus; Z88.0 Allergy status to penicillin
CPT/HCPCS: 96365; J0878

== ENCOUNTER 2023-03-14 02:44 | Day surgery (SDC) | payer OTHER ==
[2023-03-14 09:34] VITALS: BP 134/83
== END 2023-03-14 09:55 | disposition home or self-care (01) ==
LOC: ATC 02:44
DX: N15.1 Renal and perinephric abscess (principal); B95.62 Methicillin resistant Staphylococcus aureus infection as the cause of diseases classified elsewhere; Z88.0 Allergy status to penicillin
CPT/HCPCS: 96365; J0878

== ENCOUNTER 2023-03-15 01:35 | Day surgery (SDC) | payer OTHER ==
[2023-03-15 09:30] VITALS: BP 144/82
--- NOTE | 2023-03-15 11:20 | NUR ---
STOP TIME 8729
== END 2023-03-15 09:25 | disposition home or self-care (01) ==
LOC: ATC 01:35
DX: N15.1 Renal and perinephric abscess (principal); B95.62 Methicillin resistant Staphylococcus aureus infection as the cause of diseases classified elsewhere; Z88.0 Allergy status to penicillin
CPT/HCPCS: 96365; J0878

== ENCOUNTER 2023-03-16 01:42 | Day surgery (SDC) | payer OTHER ==
[2023-03-16 09:50] VITALS: BP 126/83
== END 2023-03-16 10:12 | disposition home or self-care (01) ==
LOC: ATC 01:42
DX: N15.1 Renal and perinephric abscess (principal); B95.62 Methicillin resistant Staphylococcus aureus infection as the cause of diseases classified elsewhere; Z88.0 Allergy status to penicillin
CPT/HCPCS: 96365; J0878

== ENCOUNTER 2023-03-17 00:41 | Day surgery (SDC) | payer OTHER ==
[2023-03-17 09:33] VITALS: BP 126/78
== END 2023-03-17 10:27 | disposition home or self-care (01) ==
LOC: ATC 00:41
DX: N15.1 Renal and perinephric abscess (principal); B95.62 Methicillin resistant Staphylococcus aureus infection as the cause of diseases classified elsewhere; Z88.0 Allergy status to penicillin
CPT/HCPCS: 96365; J0878

== ENCOUNTER 2023-03-18 09:33 | Day surgery (SDC) | payer OTHER ==
[2023-03-18 09:54] VITALS: BP 119/75
== END 2023-03-18 10:02 | disposition home or self-care (01) ==
LOC: ATC 09:33
DX: N15.1 Renal and perinephric abscess (principal); B95.62 Methicillin resistant Staphylococcus aureus infection as the cause of diseases classified elsewhere; Z88.0 Allergy status to penicillin
CPT/HCPCS: 96365; J0878

== ENCOUNTER 2023-03-19 01:55 | Day surgery (SDC) | payer OTHER ==
[2023-03-19] MEDS ORDERED: DAPTOmycin 450 MG in NS 50 ML IV SCH (06:00)
[2023-03-19 09:46] VITALS: BP 135/86
== END 2023-03-19 10:04 | disposition home or self-care (01) ==
LOC: ATC 01:55
DX: N15.1 Renal and perinephric abscess (principal); B95.62 Methicillin resistant Staphylococcus aureus infection as the cause of diseases classified elsewhere; Z88.0 Allergy status to penicillin
CPT/HCPCS: 96365; J0878

== ENCOUNTER 2023-03-20 01:50 | Day surgery (SDC) | payer OTHER ==
[2023-03-20] MEDS ORDERED: DAPTOmycin 450 MG in NS 50 ML IV SCH (06:00)
[2023-03-20 09:50] VITALS: BP 135/88
== END 2023-03-20 10:13 | disposition home or self-care (01) ==
LOC: ATC 01:50
DX: N15.1 Renal and perinephric abscess (principal); A41.02 Sepsis due to Methicillin resistant Staphylococcus aureus
CPT/HCPCS: 96365; J0878

== ENCOUNTER 2023-03-21 00:54 | Day surgery (SDC) | payer OTHER ==
[2023-03-21] MEDS ORDERED: DAPTOmycin 450 MG in NS 50 ML IV SCH (07:00)
[2023-03-21 09:44] VITALS: BP 145/86
== END 2023-03-21 10:03 | disposition home or self-care (01) ==
LOC: ATC 00:54
DX: N15.1 Renal and perinephric abscess (principal); A41.02 Sepsis due to Methicillin resistant Staphylococcus aureus; Z88.0 Allergy status to penicillin
CPT/HCPCS: 96365; J0878

== ENCOUNTER 2023-03-22 01:34 | Day surgery (SDC) | payer OTHER ==
[2023-03-22] MEDS ORDERED: DAPTOmycin 450 MG in NS 50 ML IV SCH (06:00)
[2023-03-22 09:26] VITALS: BP 119/88
== END 2023-03-22 09:50 | disposition home or self-care (01) ==
LOC: ATC 01:34
DX: A41.02 Sepsis due to Methicillin resistant Staphylococcus aureus (principal); N12 Tubulo-interstitial nephritis, not specified as acute or chronic; N15.1 Renal and perinephric abscess; Z88.0 Allergy status to penicillin
CPT/HCPCS: 96365; J0878

== ENCOUNTER 2023-03-23 00:47 | Day surgery (SDC) | payer OTHER ==
[2023-03-23] MEDS ORDERED: DAPTOmycin 450 MG in NS 50 ML IV SCH (06:00)
[2023-03-23 09:35] VITALS: BP 146/93
== END 2023-03-23 09:53 | disposition home or self-care (01) ==
LOC: ATC 00:47
DX: N15.1 Renal and perinephric abscess (principal); A41.02 Sepsis due to Methicillin resistant Staphylococcus aureus; Z88.0 Allergy status to penicillin
CPT/HCPCS: 96365; J0878

== ENCOUNTER 2023-03-24 01:10 | Day surgery (SDC) | payer OTHER ==
[2023-03-24] MEDS ORDERED: DAPTOmycin 450 MG in NS 50 ML IV SCH (06:00)
== END 2023-03-24 10:05 | disposition home or self-care (01) ==
LOC: ATC 01:10
DX: N15.1 Renal and perinephric abscess (principal); A41.02 Sepsis due to Methicillin resistant Staphylococcus aureus; F17.210 Nicotine dependence, cigarettes, uncomplicated; Z88.0 Allergy status to penicillin
CPT/HCPCS: 96365; J0878

== ENCOUNTER 2024-04-21 20:54 | Emergency (ER) | payer OTHER ==
[~2024-04-21] VITALS: Ht 182.9 cm; Wt 81.7 kg
[2024-04-21 21:14] VITALS: BP 138/98
[2024-04-21] MEDS ORDERED: Clindamycin HC150 MG PO (21:19)
== END 2024-04-21 21:21 | disposition home or self-care (01) ==
LOC: ER 20:54
DX: L03.115 Cellulitis of right lower limb (principal); F17.200 Nicotine dependence, unspecified, uncomplicated; Z88.0 Allergy status to penicillin; Z79.899 Other long term (current) drug therapy
CPT/HCPCS: 99283

== ENCOUNTER 2024-07-19 04:32 | Emergency (ER) | payer OTHER ==
[~2024-07-19] VITALS: Ht 177.8 cm; Wt 72.6 kg
[~2024-07-19 04:32] MED LIST changes: +Clindamycin HC150 MG PO
[2024-07-19 04:53] VITALS: BP 115/84
[2024-07-19] MEDS ORDERED: SULTRIDS PO (10:25)
[2024-07-19] MEDS ORDERED: HYDROcodone 5-APAP 325 TAB PO ONE (11:10)
== END 2024-07-19 12:06 | disposition home or self-care (01) ==
LOC: ER 04:32
DX: L02.415 Cutaneous abscess of right lower limb (principal); F17.200 Nicotine dependence, unspecified, uncomplicated; Z88.0 Allergy status to penicillin
CPT/HCPCS: 10060; 99283-25; A9270

== ENCOUNTER 2024-08-05 22:51 | Emergency (ER) | payer OTHER ==
[~2024-08-05] VITALS: Ht 177.8 cm; Wt 72.6 kg
[~2024-08-05 22:51] MED LIST changes: +SULTRIDS PO
[2024-08-06] LABS: BASOPHILS ABSOLUTE AUTO 0.09 K/mm3 (0.00-0.23); BASOPHILS PERCENT AUTO 1 % (0-2); EOSINOPHILS ABSOLUTE AUTO 0.36 K/mm3 (0.00-0.68); EOSINOPHILS PERCENT AUTO 3 % (0-6); Hematocrit 42.2 % (37.0-53.0); Hemoglobin 14.1 g/dL (13.5-17.5); IMMATURE GRAN ABSOLUTE AUTO 0.04 K/mm3 (0.00-0.10); IMMATURE GRAN PERCENT AUTO 0 % (0-1); LYMPHOCYTES ABSOLUTE AUTO 2.92 K/mm3 (0.84-5.20); LYMPHOCYTES PERCENT AUTO 23 % (21-46); MONOCYTES ABSOLUTE AUTO 0.88 K/mm3 (0.16-1.47); MONOCYTES PERCENT AUTO 7 % (4-13); Mean Corpuscular HGB 30.5 pg (26.0-34.0); Mean Corpuscular HGB Conc 33.4 g/dL (31.5-36.5); Mean Corpuscular Volume 91 fL (80-100); Mean Platelet Volume 10.6 fL (9.1-12.4); NEUTROPHILS ABSOLUTE AUTO 8.39 K/mm3 (1.96-9.15); NEUTROPHILS PERCENT AUTO 66 % (41-73); Platelet Count 351 K/mm3 (150-400); RDW Coefficient Variation 12.6 % (11.7-14.2); RDW Standard Deviation 41.7 fL (35.1-46.3); Red Blood Cell Count 4.62 M/mm3 (4.30-5.90); White Blood Cell Count 12.68 K/mm3 (4.00-11.30)
[2024-08-06 00:19] LABS: Albumin, Blood 3.3 g/dL (3.4-5.0); Albumin/Globulin Ratio 0.8 (0.8-1.8); Bilirubin, Total 0.3 mg/dL (0.1-1.0); Bun/Creatinine Ratio 27.5 (12.0-20.0); Calcium, Blood 8.4 mg/dL (8.5-10.1); Creatinine, Blood 0.95 mg/dL (0.60-1.20); Globulin, Blood 4.4 g/dL (2.2-4.0); Potassium, Blood 4.2 mmol/L (3.5-5.5); Total Protein, Blood 7.7 g/dL (6.4-8.2)
[2024-08-06] MEDS ORDERED: Trimethoprim/Sulfamethoxazole DS Tab PO ONE (02:25)
[2024-08-06] MEDS ORDERED: NS 1,000 ML IV SCH (02:25)
[2024-08-06] MEDS ORDERED: Lidocaine/Tetracaine/Epinephr 3 ML GEL SYRINGE TOP ONE (03:55)
[2024-08-06] MEDS ORDERED: SULTRIDS PO (05:36)
[2024-08-06 05:43] VITALS: BP 122/77
== END 2024-08-06 05:45 | disposition home or self-care (01) ==
LOC: ER 22:51
PROVIDERS: Student in an Organized Health Care Education/Training Program
DX: L03.116 Cellulitis of left lower limb (principal); L03.115 Cellulitis of right lower limb; L02.416 Cutaneous abscess of left lower limb; L02.415 Cutaneous abscess of right lower limb; F15.10 Other stimulant abuse, uncomplicated; F17.210 Nicotine dependence, cigarettes, uncomplicated; Z79.899 Other long term (current) drug therapy; Z88.0 Allergy status to penicillin
CPT/HCPCS: 10060; 73701; 80053; 85025; 99284-25; A9270; J7030; Q9967

== ENCOUNTER 2024-12-09 10:35 | Emergency (ER) | payer OTHER ==
[~2024-12-09] VITALS: Ht 177.8 cm; Wt 72.6 kg
[2024-12-09 11:33] VITALS: BP 168/94
[2024-12-09] MEDS ORDERED: CEPH500 PO (11:37)
[2024-12-09] MEDS ORDERED: Bactrim Ds Tab1 EACH PO (11:37)
== END 2024-12-09 11:37 | disposition home or self-care (01) ==
LOC: ER 10:35
DX: L02.511 Cutaneous abscess of right hand (principal); F17.200 Nicotine dependence, unspecified, uncomplicated
CPT/HCPCS: 99282

== ENCOUNTER 2025-02-01 19:26 | Emergency (ER) | payer OTHER ==
[~2025-02-01] VITALS: Ht 177.8 cm; Wt 72.6 kg
[2025-02-01 19:41] VITALS: BP 147/92
== END 2025-02-01 21:04 | disposition home or self-care (01) ==
LOC: ER 19:26
DX: S50.11XA Contusion of right forearm, initial encounter (principal); S60.211A Contusion of right wrist, initial encounter; F17.210 Nicotine dependence, cigarettes, uncomplicated; Z88.0 Allergy status to penicillin; Z79.899 Other long term (current) drug therapy; W01.198A Fall on same level from slipping, tripping and stumbling with subsequent striking against other object, initial encounter
CPT/HCPCS: 73110; 99283-25